=== PATIENT | female | born 1975 | race American Indian/Alaskan Native ===

== ENCOUNTER 2017-02-10 13:55 | Emergency (ER) | payer BC, OTHER ==
[2017-02-10] MEDS ORDERED: Labetalol 5mg/ml (4ml) IVP STA (14:36)
[2017-02-10] MEDS ORDERED: Labetalol 5mg/ml (4ml) ONE (14:39)
[2017-02-10 15:14] LABS: BASO % 0.5 % (0.0-2.0); EOS # 0.1 K/uL (0.0-0.7); EOS % 1.2 % (0.0-4.0); HEMATOCRIT 43.8 % (34.0-47.0); MEAN CELL VOLUME 83.7 fl (81.0-99.0); MEAN CORPUSCULAR HEMOGLOBIN 26.9 pg (27.0-31.0); MEAN CORPUSCULAR HGB CONC 32.1 g/dL (33.0-37.0); MEAN PLATELET VOLUME 8.8 fl (7.2-11.7); MONO # 0.3 K/uL (0.0-0.8); MONO % 5.3 % (0.0-10.0); NEUT # 4.3 K/uL (1.8-7.0); NRBC % 0.1 % (0.0-0.0); RED CELL DISTRIBUTION WIDTH 14.7 % (11.5-14.5); WHITE BLOOD COUNT 5.7 K/uL (4.8-10.8)
--- NOTE | 2017-02-10 15:30 | ED PDOC ---
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 Patient states that her headache began last night and progressively became worse, which prompted her calling of EMS. She also reports that she is on two medications for her chronic hypertension, but that she has not taken them for the past two months due to inadequate follow up with her doctor; she has a refill for the medications that is waiting to be picked up. Patient states that she has "a lot of family stress," but denies any suicidal or homicidal ideations. Her social history includes smoking one pack of cigarettes a day, drinking alcohol occasionally, but no drug use. She denies any nausea, vomiting, diarrhea, blurred or double vision, chest pain, abdominal pain, or back pain, but does have slight shortness of breath. PMD: Provider TBD Of note: Though patient is unsure of her BP medications, they are most likely Valsartan and Amlodipene. Past Medical History Reviewed: Historical Data, Nursing Documentation, Vital Signs Vital Signs: Last Vital Signs Temp 97.9 F 02/10/17 14:03 Pulse 73 02/10/17 14:50 Resp 16 02/10/17 14:50 BP 165/112 H 02/10/17 14:50 Pulse Ox 95 02/10/17 14:50 - Medical History PMH: HTN - Surgical History Surgical History: No Surg Hx - Family History Family History: States: Unknown Family Hx - Social History Current smoker - smoking cessation education provided: Yes SMOKER/PACKS PER DAY:: 1 Alcohol: Occasional Drugs: Denies - Home Medications Home Medications: Ambulatory Orders Medication Instructions Recorded No Known Home Med 02/10/17 - Allergies Allergies/Adverse Reactions: Allergies Allergy/AdvReac Type Severity Reaction Status Date / Time No Known Allergies Allergy Verified 02/10/17 14:02 Review of Systems Eyes: Negative for: Other (no blurred or double vision) Cardiovascular: Negative for: Chest Pain Respiratory: Positive for: Shortness of Breath (slight) Gastrointestinal: Negative for: Nausea, Vomiting, Abdominal Pain, Diarrhea Musculoskeletal: Negative for: Back Pain Physical Exam - Reviewed Nursing Documentation Reviewed: Yes Vital Signs Reviewed: Yes - Physical Exam Appears: Positive for: Non-toxic, No Acute Distress Head Exam: Positive for: ATRAUMATIC, NORMOCEPHALIC Skin: Positive for: Normal Color, Warm, Dry Eye Exam: Positive for: Normal appearance, PERRL Neck: Positive for: Normal, Painless ROM, Supple Cardiovascular/Chest: Positive for: Regular Rate, Rhythm, Other (before coming to ER, intial systolic BP was over 200 and initial diastolic BP was over 110. Since coming to ER, BP has decreased to about 160 systolic/110 disatolic. HR is in the 70 BMP range.). Negative for: Edema, Murmur Respiratory: Positive for: Normal Breath Sounds. Negative for: Wheezing Gastrointestinal/Abdominal: Positive for: Soft. Negative for: Tenderness Neurologic/Psych: Positive for: Alert, Oriented - Laboratory Results Result Diagrams: 02/10/17 15:00 02/10/17 15:00 - ECG ECG Rhythm: Positive for: Normal QRS O2 Sat by Pulse Oximetry: 95 (RA) Pulse Ox Interpretation: Normal - Radiology X-Ray: Read By Radiologist X-Ray Interpretation: No Acute Disease - Progress Re-evaluation Time: 17:39 Condition: Re-examined, Improved Medical Decision Making Medical Decision Makin:35 Initial Impression: Uncontrolled Hypertension with Headache Initial Plan: * EKG * CMP * Troponin * Urine * Chest X-Ray * Norvsac 10 mg PO * Reevaluation Scribe Attestation: Documented by Jessica Garcia, acting as a scribe for Amber Hale MD Provider Scribe Attestation: All medical record entries made by the Scribe were at my direction and personally dictated by me. I have reviewed the chart and agree that the record accurately reflects my personal performance of the history, physical exam, medical decision making, and the department course for this patient. I have also personally directed, reviewed, and agree with the discharge instructions and disposition. Disposition - Clinical Impression Clinical Impression: Hypertension - Patient ED Disposition Is Patient to be Admitted: No Doctor Will See Patient In The: Office Counseled Patient/Family Regarding: Diagnosis, Need For Followup - Disposition Disposition: Routine/Home Disposition Time: 17:39 Condition: IMPROVED Additional Instructions: Please last picker the refills of the medications that you are supposed to take and restart them as instructed. Instructions: Hypertension (ED) Forms: [facility] ED School/Work Excuse - POA Present On Arrival: None
[2017-02-10 15:33] LABS: ALKALINE PHOSPHATASE 73 U/L (38-126); ALT/SGPT 22 U/L (9-52); AST/SGOT 26 U/L (14-36); BILIRUBIN,TOTAL 0.6 mg/dl (0.2-1.3); BLOOD UREA NITROGEN 12 mg/dl (7-17); CALCIUM 9.1 mg/dL (8.4-10.2); CARBON DIOXIDE 20 mmol/L (22-30); CHLORIDE 107 mmol/L (98-107); GFR AFRICAN-AMERICAN > 60; GLUCOSE,RANDOM 98 mg/dL (65-105); SODIUM 140 mmol/l (132-148); TOTAL PROTEIN 8.2 G/DL (6.3-8.2)
[2017-02-10 15:35] LABS: POTASSIUM 4.3 MMOL/L (3.6-5.0)
[2017-02-10 15:38] VITALS: RESP 16
--- NOTE | 2017-02-10 16:26 | RAD ---
PROCEDURE: CHEST RADIOGRAPH, 1 VIEW HISTORY: hypertension with headache since yesterday COMPARISON: None available. FINDINGS: LUNGS: Minor linear atelectasis and or scarring changes seen in the right lung base. Poor inspiration with low lung volumes and mild crowded bronchovascular markings. PLEURA: No pneumothorax or pleural fluid seen. CARDIOVASCULAR: Heart size is upper limits of normal. OSSEOUS STRUCTURES: No significant abnormalities. VISUALIZED UPPER ABDOMEN: Normal. OTHER FINDINGS: None. IMPRESSION: Minor linear atelectasis and or scarring changes seen in the right lung base. Poor inspiration with low lung volumes and mild crowded bronchovascular markings.
[2017-02-10 18:02] VITALS: BP 175/100; PULSE 71; TEMP 98.2; O2SAT 99
--- NOTE | 2017-02-11 10:53 | CARD ---
APPROVED REPORT EKG Measurement Heart [id number] NH 186P-1 [id number] <Conclusion> Normal sinus rhythm Nonspecific T wave abnormality Abnormal ECG
== END 2017-02-10 18:07 | disposition home or self-care (01) ==
LOC: H.ER 13:55
DX: I10 Essential (primary) hypertension (principal); R51 Headache